=== PATIENT | female | born 1970 | race Caucasian/White ===

== ENCOUNTER → 2018-11-09 | Outpatient (CLI) | payer BC ==
[~2018-11-09] MED LIST: CODE-54 PO; HYDR-3714 PO; HYDR-757 PO; IBUP-1773 PO; ONDA8TAB13 PO; TRAM50TA2 PO
--- NOTE | 2018-11-09 16:24 | Diagnostic Imaging Report ---
PROCEDURE: MRI lumbar spine. TECHNIQUE: Multiplanar, multisequence MRI of the lumbar spine was performed without contrast. INDICATION: Low back pain. COMPARISON: None. FINDINGS: There are five lumbar-type vertebral bodies for the purposes of this report. Minimal retrolisthesis of L2 on L3. Alignment is otherwise unremarkable. Vertebral body heights are preserved. No abnormal signal in the conus which terminates at L2. Normal morphology of the cauda equina. At L5-S1, there is a small central disc protrusion which results in mild bilateral lateral recess narrowing. There is also moderate bilateral neuroforaminal narrowing at this level. The intervertebral discs are otherwise well preserved. No other spinal canal, lateral recess, or neuroforaminal narrowing. No substantial facet arthropathy. The visualized abdominal and pelvic contents are unremarkable. IMPRESSION: Spondylotic changes at L5-S1 result in mild bilateral lateral recess and moderate bilateral neuroforaminal narrowing. No other spinal canal, lateral recess, or neuroforaminal narrowing. No acute osseous findings. Dictated by: Dictated on workstation # [id number]
== END ==
LOC: RAD 15:38
PROVIDERS: ATTEND Nurse Practitioner Family
DX: M47.27 Other spondylosis with radiculopathy, lumbosacral region (principal); M48.07 Spinal stenosis, lumbosacral region
CPT/HCPCS: 72148

== ENCOUNTER → 2019-08-18 | Outpatient (CLI) | payer BC ==
--- NOTE | 2019-08-18 09:50 | Diagnostic Imaging Report ---
PROCEDURE: US non-ob pelvis comp/trans. TECHNIQUE: Multiple Real-time grayscale images were obtained of the pelvis in various projections endovaginally. Transabdominal imaging was also performed. INDICATION: Menorrhagia. FINDINGS: The uterus is anteverted measuring 8.5 x 4.4 x 5.2 cm. The endometrium is 6 mm in thickness. No myometrial mass is detected. The right ovary measures 3.4 x 2.5 x 2.6 cm and does contain a 2.6 x 1.5 x 2.0 cm cyst. There is blood flow to the right ovary. The left ovary is not visualized. The left adnexa is unremarkable. There is no free fluid. IMPRESSION: Right ovarian cyst. No other significant abnormality is detected. Dictated by: Dictated on workstation # [id number]
== END ==
LOC: RAD 08:54
PROVIDERS: ATTEND Nurse Practitioner Family
DX: N83.201 Unspecified ovarian cyst, right side (principal)
CPT/HCPCS: 76830; 76856

== ENCOUNTER 2019-09-17 19:48 | Emergency (ER) | payer BC ==
[~2019-09-17] VITALS: Ht 158 cm; Wt 68.0 kg
[2019-09-17] MEDS ORDERED: FEXO1TAB40 (19:57)
[2019-09-17] MEDS ORDERED: ALPR0.5T7 (19:57)
[2019-09-17] MEDS ORDERED: LISI10TA2 (19:57)
[2019-09-17] MEDS ORDERED: OXYC-464 (19:57)
[2019-09-17] MEDS ORDERED: GABA300C (19:57)
[2019-09-17] MEDS ORDERED: MIRA50TA (19:57)
[2019-09-17] MEDS ORDERED: DEXT30TA12 (19:57)
[2019-09-17] MEDS ORDERED: diphenhydrAMINE 50 MG/ML INJ (BENADRYL) IVP ONE (20:00)
[2019-09-17 20:12] LABS: BASOPHILS % (AUTO) 0 % (0-10); EOSINOPHILS # (AUTO) 0.2 10^3/uL (0.0-0.3); EOSINOPHILS % (AUTO) 2 % (0-10); HEMATOCRIT 33 % (35-52); HEMOGLOBIN 10.8 G/DL (11.5-16.0); LYMPHOCYTES # (AUTO) 1.7 X 10^3 (1.0-4.0); LYMPHOCYTES % (AUTO) 23 % (12-44); MEAN CORPUSCULAR HEMOGLOBIN 29 PG (25-34); MEAN CORPUSCULAR HGB CONC 33 G/DL (32-36); MEAN CORPUSCULAR VOLUME 89 FL (80-99); MEAN PLATELET VOLUME 9.2 FL (7.4-10.4); MONOCYTES % (AUTO) 14 % (0-12); NEUTROPHILS # (AUTO) 4.5 X 10^3 (1.8-7.8); NEUTROPHILS % (AUTO) 61 % (42-75); PLATELET COUNT 257 10^3/uL (130-400); RED CELL DISTRIBUTION WIDTH 12.2 % (10.0-14.5); WHITE BLOOD COUNT 7.4 10^3/uL (4.3-11.0)
--- NOTE | 2019-09-17 20:13 | ED Neurological Problem ---
General Chief Complaint: Neuro-Stroke Like Symptoms Stated Complaint: STROKE LIKE SYMPTOMS Source: patient Exam Limitations: no limitations History of Present Illness Date Seen by Provider: September 17, 2019 Time Seen by Provider: 20:10 Initial Comments To ER with reports of uncontrollable facial movements and difficulty speaking. The right side of top lip clenched and she is unable to control it. This began suddenly about 2 hours ago while cooking dinner she had a sudden wave of nausea and sweatiness come over. She has never had this happen before. No new medications and she has not stopped any medications. She does report that she has been under a lot of stress lately by her daughter who just moved back to the area from [place] and has been very mean to her unknown reasons. She is tearful on arrival. Severity: moderate Associated Symptoms: other (Stuttering speech) Allergies and Home Medications Allergies Coded Allergies: morphine (Unverified Allergy, Intermediate, HIVES, 09/16/14) Patient Home Medication List Home Medication List Reviewed: Yes Review of Systems Review of Systems Constitutional: see HPI Eyes: No Symptoms Reported Ears, Nose, Mouth, Throat: no symptoms reported Respiratory: no symptoms reported Cardiovascular: no symptoms reported Genitourinary: no symptoms reported Musculoskeletal: no symptoms reported Skin: no symptoms reported Psychiatric/Neurological: See HPI, Anxiety Past Hmktpsc-Mgymib-Purlef Hx Patient Social History Recent Foreign Travel: No Contact w/Someone Who Travel: No Past Medical History Orthopedic Reproductive Disorders: Yes Arthritis Family Medical History Alcoholism 19 FATHER No Family History of: AIDS Abdominal aortic aneurysm Alzheimer's disease Arthritis Asthma Cancer of mouth Cardiovascular disease Cataracts Colon cancer Diabetes mellitus Drug abuse Dysphasia Hypertension Infertility Kidney disease Myocardial infarction Parkinson's disease Prostate cancer Psychosocial problem Respiratory disorder Seizure disorder Severe allergy Thyroid disease Tuberculosis No Pertinent Family Hx Physical Exam Vital Signs Vital Signs - First Documented 09/17/19 19:51 Temp 36.6 Pulse 94 Resp 22 B/P (MAP) 158/91 (113) Pulse Ox 100 O2 Delivery Room Air Capillary Refill : Height, Weight, BMI Height: 5'2.00" Weight: 154lbs. oz. 69.058418yx; BMI Method: General Appearance: WD/WN, no apparent distress, other (tearful hyperventilating very anxious. She does have some tardive dyskinesia-appearing movements of her face. He moves all extremities well. She does have a stuttering speech pattern but when she does speak is not slurred. As I spoke only to her for about 10 minutes her facial movements ceased and her speech improved.) Neck: non-tender, full range of motion Respiratory: lungs clear, normal breath sounds, no respiratory distress, no accessory muscle use Cardiovascular: regular rate, rhythm, no murmur Gastrointestinal: normal bowel sounds, soft Extremities: normal range of motion, non-tender Neurologic/Psychiatric: alert, normal mood/affect, oriented x 3 Crainal Nerves: normal hearing, PERRL Skin: normal color, warm/dry Stroke NIH Stroke Scale Assessment Level of Consciousness: 0=Alert (0), Level of Consciousness-Questions: 0=Answers both month/age (0), LOC Commands: 0=Performs both tasks (0), Visual Mtz: 0=No visual loss (0), Facial Movement (Facial Paresis): 0=Normal symmetrical mnt (0), Motor Function-Arms Right: 0=No drift (0), Motor Function-Arms Left: 0=No drift (0), Motor Function-Legs Right: 0=No drift (0), Motor Function-Legs Left: 0=No drift (0), Limb Ataxia: 0=Absent (0), S ensory: 0=Normal:no loss (0), Best Language: 0=No aphasia (0), Dysarthria: 1 =Mild to moderate loss (1), Extinction & Inattention: 0=No abnormality (0), Total: Progress/Results/Core Measures Results/Orders Lab Results Laboratory Tests Test 09/17/19 19:53 Range/Units White Blood Count 7.4 4.3-11.0 10^3/uL Red Blood Count 3.71 L 4.35-5.85 10^6/uL Hemoglobin 10.8 L 11.5-16.0 G/DL Hematocrit 33 L 35-52 % Mean Corpuscular Volume 89 80-99 FL Mean Corpuscular Hemoglobin 29 25-34 PG Mean Corpuscular Hemoglobin Concent 33 32-36 G/DL Red Cell Distribution Width 12.2 10.0-14.5 % Platelet Count 257 130-400 10^3/uL Mean Platelet Volume 9.2 7.4-10.4 FL Neutrophils (%) (Auto) 61 42-75 % Lymphocytes (%) (Auto) 23 12-44 % Monocytes (%) (Auto) 14 H 0-12 % Eosinophils (%) (Auto) 2 0-10 % Basophils (%) (Auto) 0 0-10 % Neutrophils # (Auto) 4.5 1.8-7.8 X 10^3 Lymphocytes # (Auto) 1.7 1.0-4.0 X 10^3 Monocytes # (Auto) 1.0 0.0-1.0 X 10^3 Eosinophils # (Auto) 0.2 0.0-0.3 10^3/uL Basophils # (Auto) 0.0 0.0-0.1 10^3/uL Sodium Level 139 135-145 MMOL/L Potassium Level 3.9 3.6-5.0 MMOL/L Chloride Level 105 98-107 MMOL/L Carbon Dioxide Level 23 21-32 MMOL/L Anion Gap 11 5-14 MMOL/L Blood Urea Nitrogen 14 7-18 MG/DL Creatinine 1.00 0.60-1.30 MG/DL Estimat Glomerular Filtration Rate 59 BUN/Creatinine Ratio 14 Glucose Level 101 70-105 MG/DL Calcium Level 9.1 8.5-10.1 MG/DL Corrected Calcium 9.0 8.5-10.1 MG/DL Magnesium Level 2.1 1.6-2.4 MG/DL Total Bilirubin 0.3 0.1-1.0 MG/DL Aspartate Amino Transf (AST/SGOT) 16 5-34 U/L Alanine Aminotransferase (ALT/SGPT) 9 0-55 U/L Alkaline Phosphatase 41 40-136 U/L Total Protein 6.7 6.4-8.2 GM/DL Albumin 4.1 3.2-4.5 GM/DL My Orders Orders - [employer] Cbc With Automated Diff (09/17/19 20:00) Comprehensive Metabolic Panel (09/17/19 20:00) Magnesium (09/17/19 20:00) Ua Culture If Indicated (09/17/19 20:00) Ed Iv/Invasive Line Start (09/17/19 20:00) Diphenhydramine Injection (Benadryl Inje (09/17/19 20:00) Ct Head Wo (09/17/19 20:00) Rx-Lorazepam (Rx-Ativan) (09/17/19 20:36) Lorazepam Injection (Ativan Injection) (09/17/19 20:45) Medications Given in ED Current Medications Medications Dose Ordered Sig/Mary Route Start Time Stop Time Status Last Admin Dose Admin Diphenhydramine HCl 25 mg ONCE ONCE IVP 09/17/19 20:00 09/17/19 20:02 DC 09/17/19 20:06 25 MG Lorazepam 0.5 mg ONCE PRN IVP 09/17/19 20:45 09/17/19 20:43 0.5 MG Vital Signs/I&O 09/17/19 19:51 Temp 36.6 Pulse 94 Resp 22 B/P (MAP) 158/91 (113) Pulse Ox 100 O2 Delivery Room Air Departure Communication (Admissions) 2121 feeling much better at this time, states her face still feels a little weird but there are no residual facial tics or dyskinesia type movements. She is no longer crying or tachypneic. Arm strength is 5 out of 5 bilaterally, shoulder shrug is 5 out of 5 bilaterally, moves tongue in all directions, extraocular muscles intact. Ambulatory to the bathroom without assistance. Impression Primary Impression: Facial tic Additional Impression: Anxiety as acute reaction to gross stress Disposition: 01 HOME, SELF-CARE Condition: Improved Departure-Patient Inst. Decision time for Depature: 20:35 Referrals: MERRY LOUISE MD (PCP) Primary Care Physician DIANE MATHEW APRN (Family) Primary Care Physician Patient Instructions: Stress Add. Discharge Instructions: 1. Medication as directed 2. Follow up with your doctor next week All discharge instructions reviewed with patient and/or family. Voiced understanding. CHELSEY IYER APRN September 17, 2019 20:13
--- OUTSIDE RECORDS SUMMARY | 2019-09-17 20:29 | XMS REPORT | Clinical Summary ---
Author Author [facility] Organization [facility] Address Unknown Phone Unavailable Care Team Providers Care Rn Palliative Name Role Phone PCP Unavailable Allergies Not on File Medications Not on file Active Problems Not on file Social History Date Tobacco Use Types Packs/Day Years Used Never Assessed Sex Assigned at Date Recorded Not on file Industry Job Start Date Occupation Not on file Not on file Not on file Travel End Travel History Travel Start No recent travel history available. Last Filed Vital Signs Not on file Plan of Treatment Health Maintenance Due Date Last Done Comments DTaP,Tdap,and Td Vaccines 10/11/1987 (1 - Tdap) MMR Vaccines-Adult 10/11/1987 Cervical Cancer Screening 1989 Breast Cancer 2018 Screening-Mammogram Colon Cancer Screening 2018 Zoster Recombinant 2018 Vaccine (RZV,Shingrix) (1 of [address] [facility] 2 Dose Standard) Influenza Vaccine (Season 12/28/2019 Ended) Pneumo-Vaccine: Peds (0-5 Aged Out No longer el igible based on patient's age to Yrs) & At-Risk Patients complete this topic (6-64 Yrs) Results Not on filefrom Last 3 Months
--- OUTSIDE RECORDS SUMMARY | 2019-09-17 20:29 | XMS REPORT | Continuity of Care Document ---
Author Organization Unknown Address Unknown Phone Unavailable Allergies There is no data. Medications There is no data. Problems Date Dx Coded Attending Type Code Diagnosis Diagnosed By 03/17/2013 XENA BRANHAM APRN A V25.09 CONTRACEPTIVE COUNSELING - GENERAL 03/17/2013 XENA BRANHAM APRN A V25.12 IUD REMOVAL 03/17/2013 JOAN BACON APRN S V25.09 CONTRACEPTIVE COUNSELING - GENERAL 03/17/2013 CRYS BACON APRNA S V25.12 IUD REMOVAL 03/17/2013 ELY MAGALLANES APRNYL A V25.09 CONTRACEPTIVE COUNSELING - GENERAL 03/17/2013 ELY MAGALLANES APRNYL A V25.12 IUD REMOVAL 04/27/2013 JOAN BACON APRN S 296.80 BIPOLAR DISORDER UNSPECIFIED 04/27/2013 JOAN BACON APRN S V70.0 EXAM - ROUTINE H&P 04/27/2013 ELY MAGALLANES APRNYL A 296.80 BIPOLAR DISORDER UNSPECIFIED 04/27/2013 SONA GRANADOS DEBRA A V70.0 EXAM - ROUTINE H&P 04/19/2014 ELY MAGALLANES APRNYL A 079.99 VIRAL SYNDROME 04/19/2014 ELY MAGALLANES APRNYL A V15.82 NICOTINE ABUSE 04/19/2014 SONA GRANADOS DEBRA A V65.42 COUNSELING - SMOKING CESSATION Procedures Code Description [place] [address] IUD REMOVAL 03/17/2013 78887 URIN E TEST (IN- HOUSE) 03/17/2013 88264 ROUT INE VENIPUNCTURE 04/27/2013 46881 CMP 04/27/2013 3370613 GF R CALC (RESULT ONLY) 04/27/2013 66258 CBC 04/27/2013 83227 TSH 04/27/2013 71123 URIN E DRUG SCREEN (IN-HOUSE) 04/30/2013 99052 INFL UENZA A & B (IN-HOUSE) 04/19/2014 Results There is no data. Encounters ACCT No. Visit Date/Time Discharge Status Pt. Type Provider Facility Loc./Unit Complaint [id number] 04/19/2014 10:11:00 04/19/2014 23:59: 59 CLS Outpatient DEBRA MAGALLANES APRN [id number] 04/27/2013 09:11:00 04/27/2013 23:59: 59 CLS Outpatient JOAN BACON APRN [id number] 03/17/2013 09:33:00 03/17/2013 23:59: 59 CLS Outpatient XENA BRANHAM APRN
[2019-09-17 20:31] LABS: ALBUMIN 4.1 GM/DL (3.2-4.5); BILIRUBIN,TOTAL 0.3 MG/DL (0.1-1.0); CALCIUM 9.1 MG/DL (8.5-10.1); MAGNESIUM 2.1 MG/DL (1.6-2.4); POTASSIUM 3.9 MMOL/L (3.6-5.0); TOTAL PROTEIN 6.7 GM/DL (6.4-8.2)
--- NOTE | 2019-09-17 20:32 | Diagnostic Imaging Report ---
PROCEDURE: CT head without contrast. TECHNIQUE: Multiple contiguous axial images were obtained through the brain without the use of intravenous contrast. Auto Exposure Controls were utilized during the CT exam to meet ALARA standards for radiation dose reduction. INDICATION: Difficulty with speaking, right-sided facial numbness and weakness. Symptoms of 2 hours duration. FINDINGS: There is no intracranial hemorrhage. No focal or generalized cerebral edema. No sulcal effacement. No mass or mass effect. The basilar cisterns are patent. There is no evidence for an elevation of the intracranial pressures. The ventricular system is nondisplaced. The orbits, sinuses and calvarium are nonacute. IMPRESSION: No hemorrhage, edema or acute appearing abnormality. Dictated by: Dictated on workstation # [id number]
[2019-09-17] MEDS ORDERED: RX-LORAZEPAM (ATIVAN) 0.5 MG TAB PPK#4 PO STA (20:36)
--- NOTE | 2019-09-17 20:40 | NUR ---
PT C/O CONTINUED FACIAL TWITCHING
[2019-09-17] MEDS ORDERED: LORazepam INJ 2 MG/ML (ATIVAN) VIAL IVP PRN (20:45)
[2019-09-17 21:20] VITALS: BP 135/81
== END 2019-09-17 21:20 | disposition home or self-care (01) ==
LOC: EDUNIT# 19:48 → ER 19:50
DX: G25.69 Other tics of organic origin (principal); F41.8 Other specified anxiety disorders; F43.0 Acute stress reaction; Z88.5 Allergy status to narcotic agent
CPT/HCPCS: 36415; 70450; 80053; 83735; 85025

== ENCOUNTER → 2022-03-15 | Outpatient (CLI) | payer OTHER ==
[~2022-03-15] MED LIST changes: +ALPR0.5T7; +CATHETER FLUSH 10 ML SYR IVP PRN; +DEXT30TA12; +FEXO1TAB40; +GABA300C; +LISI10TA25; +MIRA50TA; +OXYC1TAB15
--- NOTE | 2022-03-15 14:08 | Diagnostic Imaging Report ---
INDICATION: Right upper quadrant pain, nausea, vomiting. FINDINGS: The patient was administered 4.5 mCi of Tc 99m Choletec and sequential imaging was performed over the right upper abdomen. There is progressive, homogeneous accumulation of radiotracer within the liver parenchyma. There is filling of the bile ducts and subsequent filling of the gallbladder. There is progressive clearance of activity from the liver parenchyma and accumulation of radiotracer within loops of small bowel. The patient was then administered a fatty meal, utilizing 8 ounces of Ensure. The gallbladder ejection fraction was calculated to be approximately 72.9%. (Normal values post fatty meal stimulation are 33% or greater.) IMPRESSION: 1. Hepatobiliary scan demonstrates a patent biliary tree. 2. Normal gallbladder ejection fraction of approximately 72.9%. Dictated by: Dictated on workstation # [id number]
== END ==
LOC: CARD 10:01
PROVIDERS: ATTEND Surgery
DX: R10.11 Right upper quadrant pain (principal); R11.2 Nausea with vomiting, unspecified
CPT/HCPCS: 78227; A9537

== ENCOUNTER → 2022-05-01 | Outpatient (CLI) | payer OTHER ==
[~2022-05-01] MED LIST changes: +CATHETER FLUSH 10 ML SYR IV PRN; -CATHETER FLUSH 10 ML SYR IVP PRN; +HOLD METFORMIN - RECEIVED CONTRAST 20 ML VIAL IV SCH; +IOHEXOL 350 MG/ML 100 ML (OMNIPAQUE 350) VIAL IV ONE; +NS 100 ML (IVPB) BAG IV ONE
--- NOTE | 2022-05-01 14:18 | Diagnostic Imaging Report ---
EXAMINATION: CT chest with intravenous contrast. TECHNIQUE: Multiple contiguous axial images were obtained through the chest after the uneventful administration of intravenous contrast. All CT scans use one or more of the following dose optimizing techniques: automated exposure control, MA and/or KvP adjustment based on patient size and exam type or iterative reconstruction. HISTORY: Chest pain, radiating to the right arm. COMPARISON: None available. FINDINGS: The heart size is within normal limits. No pericardial effusion is present. There is no mediastinal, hilar, or axillary lymphadenopathy. The lungs demonstrate no pulmonary nodules or masses. There are no focal areas of consolidation. A small amount of dependent atelectasis is seen in the right lung base. No central endobronchial obstructing lesions are identified. There is no pleural effusion or pneumothorax. The osseous structures demonstrate no acute abnormalities. Limited views of the upper abdominal structures demonstrate no acute abnormalities. Both adrenal glands are unremarkable. IMPRESSION: 1. No suspicious masses or focal consolidations. No pleural effusion or pneumothorax. 2. Minimal dependent atelectasis in the right lung base. Dictated by: Dictated on workstation # [id number]
== END ==
LOC: RAD 13:45
PROVIDERS: ATTEND Nurse Practitioner Family
DX: R42 Dizziness and giddiness (principal); R60.9 Edema, unspecified; R07.89 Other chest pain
CPT/HCPCS: 71260

== ENCOUNTER 2022-10-08 05:30 | Outpatient (CLI) | payer OTHER ==
[~2022-10-08] VITALS: Ht 157.5 cm; Wt 81.8 kg
[~2022-10-08 05:30] MED LIST changes: -CATHETER FLUSH 10 ML SYR IV PRN; -HOLD METFORMIN - RECEIVED CONTRAST 20 ML VIAL IV SCH; -IOHEXOL 350 MG/ML 100 ML (OMNIPAQUE 350) VIAL IV ONE; -LISI10TA25; +LISI10TA25 PO; -NS 100 ML (IVPB) BAG IV ONE
[2022-10-08] MEDS ORDERED: PANT40TA52 PO (13:01)
[2022-10-08] MEDS ORDERED: AMPH30TA2 PO (13:01)
[2022-10-08] MEDS ORDERED: CLON0.5T4 PO (13:01)
[2022-10-08] MEDS ORDERED: PARO10TA3 PO (13:01)
[2022-10-08] MEDS ORDERED: DICL25TA9 PO (13:01)
[2022-10-08] MEDS ORDERED: OMEP40CA6 PO (13:01)
== END 2022-10-08 13:09 | disposition home or self-care (01) ==
LOC: PREOP 05:30
PROVIDERS: ATTEND Specialist
DX: Z01.818 Encounter for other preprocedural examination (principal)

== ENCOUNTER 2022-10-11 07:45 | Day surgery (SDC) | payer OTHER ==
[~2022-10-11] VITALS: Ht 157.5 cm; Wt 81.8 kg
[~2022-10-11 07:45] MED LIST changes: +AMPH30TA2 PO; +CLON0.5T4 PO; +DICL25TA9 PO; +OMEP40CA6 PO; +PANT40TA52 PO; +PARO10TA3 PO
[2022-10-11] MEDS ORDERED: MOXIFLOXACIN OPHTH SOLN 5 MG/ML 0.3 ML SYRINGE OP ONE (08:30)
[2022-10-11] MEDS ORDERED: POVIDONE (BETADINE) OPHTH SOLN 5% 30 ML OP ONE (08:30)
[2022-10-11] MEDS ORDERED: TIMOLOL 0.5% (CATARACTS) 0.3 ML BTL OU PRN (08:30)
[2022-10-11] MEDS: TETRACAINE 0.5% OPHTH SOLN 4 ML BTL (SINGLE DOSE ONLY) OU PRN ×4 (08:32→08:51)
[2022-10-11] MEDS: PHENYLEPHRINE 10% OPHTH (NEO-SYN) 5 ML BTL OU SCH ×3 (08:40→08:51)
[2022-10-11] MEDS: TROPICAMIDE 1% OPH SOLN (MYDRIACYL) 15 ML BTL OP SCH ×3 (08:40→08:51)
[2022-10-11 08:41] VITALS: BP 108/68
[2022-10-11] MEDS ORDERED: MIDAZOLAM 2 MG/2 ML (VERSED) VIAL ONE (09:18)
--- NOTE | 2022-10-11 09:32 | Ophthalmologist Pre-Op Note ---
Pre-Operative Progress Note H&P Reviewed The H&P was reviewed, patient examined and no changes noted. Date H&P Reviewed: Oct 11, 2022 Time H&P Reviewed: 09:32 Pre-Op Dx Cataract, Right Eye ONEIL CURRY MD Oct 11, 2022 09:32
--- NOTE | 2022-10-11 09:56 | Ophthalmology Operative Report ---
Cataract removal/placement IOL PREOPERATIVE DIAGNOSIS: Cataract Right Eye POSTOPERATIVE DIAGNOSIS: Cataract Right Eye PROCEDURE: Cataract removal and placement of posterior chamber implant, right eye SURGEON: Noe Curry ANESTHESIA: Topical with sedation COMPLICATIONS: None ESTIMATED BLOOD LOSS: Minimal DESCRIPTION OF PROCEDURE: After proper informed consent was obtained, the patient, a 52 female, was taken to the Operating Room and the right eye was anesthetized with tetracaine. The right eye was then prepped and draped in the usual manner. A wire lid speculum was placed. A paracentesis was made at the left hand position. Preservative free lidocaine was injected into the anterior chamber followed by viscoelastic. A clear corneal incision was made in the temporal position. A capsulorrhexis was preformed and the central nuclear and cortical material were removed. The posterior capsule was polished and Eligio 18.0 AU00T0 IOL was placed into the capsular bag. The residual viscoelastic was aspirated and balanced saline solution was injected into the anterior chamber. Moxifloxacin was injected into the anterior chamber. The wound was checked and found to be water tight. The patient tolerated the procedure well without complications. NOE CURRY MD Oct 11, 2022 09:56
[2022-10-11 10:03] VITALS: BP 105/63
[2022-10-11] MEDS ORDERED: acetaZOLAMIDE ER 500 MG CAP (DIAMOX SEQUELS) PO ONE (11:15)
--- NOTE | 2022-10-11 13:42 | Anesthesia-General Post-Op ---
MAC Patient Condition Mental Status/LOC: Same as Preop Cardiovascular: Satisfactory Nausea/Vomiting: Absent Respiratory: Satisfactory Pain: Controlled Complications: Absent Post Op Complications Complications None Follow Up Care/Instructions Patient Instructions None needed. Anesthesiology Discharge Order Discharge Order Patient was doing well this morning after the procedure with no complaints, stable vital signs, no apparent adverse anesthesia problems. No complications reported per nursing. DELVIN FUNK DO Oct 11, 2022 13:42
== END 2022-10-11 10:05 | disposition home or self-care (01) ==
LOC: SDC 07:45
PROVIDERS: ATTEND Specialist
DX: H25.9 Unspecified age-related cataract (principal)

== ENCOUNTER 2022-10-16 19:41 | Outpatient (CLI) | payer OTHER | END 2022-10-17 07:45 | disposition home or self-care (01) | LOC: SLEEP 19:41 | PROVIDERS: ATTEND Nurse Practitioner Family | DX: G47.10 Hypersomnia, unspecified (principal); G47.33 Obstructive sleep apnea (adult) (pediatric) | CPT/HCPCS: 95810 ==

== ENCOUNTER 2022-10-23 05:31 | Outpatient (CLI) | payer OTHER | END 2022-10-23 08:41 | disposition home or self-care (01) | LOC: PREOP 05:31 | PROVIDERS: ATTEND Specialist | DX: Z01.818 Encounter for other preprocedural examination (principal) ==

== ENCOUNTER 2022-11-01 11:23 | Day surgery (SDC) | payer OTHER ==
[~2022-11-01] VITALS: Ht 157.5 cm; Wt 81.8 kg
[2022-11-01] MEDS ORDERED: MOXIFLOXACIN OPHTH SOLN 5 MG/ML 0.3 ML SYRINGE OP ONE (11:30)
[2022-11-01] MEDS ORDERED: TIMOLOL 0.5% (CATARACTS) 0.3 ML BTL OU PRN (11:30)
[2022-11-01] MEDS ORDERED: POVIDONE (BETADINE) OPHTH SOLN 5% 30 ML OP ONE (11:30)
[2022-11-01] MEDS ORDERED: MIDAZOLAM 2 MG/2 ML (VERSED) VIAL ONE (11:40)
[2022-11-01] MEDS: TETRACAINE 0.5% OPHTH SOLN 4 ML BTL (SINGLE DOSE ONLY) OU PRN ×3 (11:41→12:01)
[2022-11-01 11:44] VITALS: BP 132/81
[2022-11-01] MEDS: TROPICAMIDE 1% OPH SOLN (MYDRIACYL) 15 ML BTL OP SCH ×3 (11:49→12:02)
[2022-11-01] MEDS: PHENYLEPHRINE 10% OPHTH (NEO-SYN) 5 ML BTL OU SCH ×3 (11:49→12:02)
--- NOTE | 2022-11-01 12:33 | Ophthalmologist Pre-Op Note ---
Pre-Operative Progress Note H&P Reviewed The H&P was reviewed, patient examined and no changes noted. Date H&P Reviewed: Nov 01, 2022 Time H&P Reviewed: 12:32 Pre-Op Dx Cataract, Left Eye ONEIL CURRY MD Nov 01, 2022 12:33
--- NOTE | 2022-11-01 12:54 | Ophthalmology Operative Report ---
Cataract removal/placement IOL PREOPERATIVE DIAGNOSIS: Cataract Left Eye POSTOPERATIVE DIAGNOSIS: Cataract Left Eye PROCEDURE: Cataract removal and placement of posterior chamber implant, left eye SURGEON: Noe Curry ANESTHESIA: Topical with sedation COMPLICATIONS: None ESTIMATED BLOOD LOSS: Minimal DESCRIPTION OF PROCEDURE: After proper informed consent was obtained, the patient, a 52 female, was taken to the Operating Room and the left eye was anesthetized with tetracaine. The left eye was then prepped and draped in the usual manner. A wire lid speculum was placed. A paracentesis was made at the left hand position. Preservative free lidocaine was injected into the anterior chamber followed by viscoelastic. A clear corneal incision was made in the temporal position. A capsulorrhexis was preformed and the central nuclear and cortical material were removed. The posterior capsule was polished and an Eligio 20.5 AU00T0 was placed into the capsular bag. The residual viscoelastic was aspirated and balanced saline solution was injected into the anterior chamber. Moxifloxacin was injected into the anterior chamber. The wound was checked and found to be water tight. The patient tolerated the procedure well without complications. NOE CURRY MD Nov 01, 2022 12:54
[2022-11-01 13:02] VITALS: BP 168/86
[2022-11-01] MEDS ORDERED: acetaZOLAMIDE ER 500 MG CAP (DIAMOX SEQUELS) PO ONE (14:15)
--- NOTE | 2022-11-01 15:05 | Anesthesia-General Post-Op ---
MAC Patient Condition Mental Status/LOC: Same as Preop Cardiovascular: Satisfactory Nausea/Vomiting: Absent Respiratory: Satisfactory Pain: Controlled Complications: Absent Post Op Complications Complications None Follow Up Care/Instructions Patient Instructions None needed. Anesthesiology Discharge Order Discharge Order Patient was doing well after the procedure with no complaints, stable vital signs, no apparent adverse anesthesia problems. No complications reported per nursing. DELVIN FUNK DO Nov 01, 2022 15:05
== END 2022-11-01 13:04 | disposition home or self-care (01) ==
LOC: SDC 11:23
PROVIDERS: ATTEND Specialist
DX: H25.9 Unspecified age-related cataract (principal); F17.290 Nicotine dependence, other tobacco product, uncomplicated